=== PATIENT | male | born 1990 | race Caucasian/White ===

== ENCOUNTER 2017-09-29 09:12 | Emergency (ER) | payer OTHER ==
[2017-09-29 09:19] VITALS: RESP 18
[2017-09-29] MEDS ORDERED: SODIUM CHLORIDE 0.9% 1,000 ML IV STA ×2 (09:28)
[2017-09-29] MEDS ORDERED: KETOROLAC 30 MG/ML 1 ML VIAL IVP STA (09:28)
--- NOTE | 2017-09-29 09:34 | ED ---
Back Pain HPI - General Chief Complaint: Back Pain/Injury Stated Complaint: poss kidney stone Time Seen by Provider: 09/29/17 09:22 Source: patient, RN notes reviewed Limitations: no limitations - History of Present Illness Initial Comments: This a 27-year-old male with a history kidney stones he states he's been having intermittent episodes of left flank pain of last several weeks last night he had increased pain it was off-and-on during the evening and had pain is severe is 58/10 currently is 5/10 sharp in nature nonradiating. MD Complaint: back pain - Related Data Previous Rx's Medication Instructions Recorded HYDROcodone/APAP 5-325MG [[place] 5] 1 each PO Q4HR PRN #30 tab 02/09/15 Naproxen [Naprosyn] 500 mg PO Q12HR #60 tab 02/09/15 Tamsulosin HCl [Flomax] 0.4 mg PO DAILY #30 cap 02/09/15 Ibuprofen 800 mg PO Q6HR PRN #20 tablet 09/29/17 Allergies Allergy/AdvReac Type Severity Reaction Status Date / Time Cephalosporins Allergy Unknown Verified 09/29/17 09:19 Review of Systems ROS Statement: Those systems with pertinent positive or pertinent negative responses have been documented in the HPI. ROS Other: All systems not noted in ROS Statement are negative. Past Medical History Past Medical History: No Reported History History of Any Multi-Drug Resistant Organisms: None Reported Past Surgical History: Adenoidectomy, Ear Surgery, Tonsillectomy Past Psychological History: No Psychological Hx Reported Smoking Status: Current every day smoker Past Alcohol Use History: None Reported Past Drug Use History: None Reported General Exam - General Exam Comments Initial Comments: This is a well-developed well-nourished awake alert oriented 3 male Limitations: no limitations General appearance: alert, in no apparent distress Head exam: Present: atraumatic, normocephalic, normal inspection Eye exam: Present: normal appearance, PERRL, EOMI. Absent: scleral icterus, conjunctival injection, periorbital swelling ENT exam: Present: normal exam, mucous membranes moist Neck exam: Present: normal inspection. Absent: tenderness, meningismus, lymphadenopathy Respiratory exam: Present: normal lung sounds bilaterally. Absent: respiratory distress, wheezes, rales, rhonchi, stridor Cardiovascular Exam: Present: regular rate, normal rhythm, normal heart sounds. Absent: systolic murmur, diastolic murmur, rubs, gallop, clicks GI/Abdominal exam: Present: soft, normal bowel sounds. Absent: distended, tenderness, guarding, rebound, rigid Extremities exam: Present: normal inspection, full ROM, normal capillary refill. Absent: tenderness, pedal edema, joint swelling, calf tenderness Back exam: Present: normal inspection, tenderness (Mild left SI region pain to palpation no CVA tenderness). Absent: CVA tenderness (R), CVA tenderness (L), muscle spasm, paraspinal tenderness, vertebral tenderness, rash noted Neurological exam: Present: alert, oriented X3, CN II-XII intact Psychiatric exam: Present: normal affect, normal mood Skin exam: Present: warm, dry, intact, normal color. Absent: rash Course Vital Signs 09/29/17 09:16 Temperature 97.7 F Pulse Rate 97 Respiratory 18 Rate Blood Pressure 138/85 O2 Sat by Pulse 99 Oximetry Medical Decision Making - Medical Decision Making The patient is showing improved I did discuss the findings with him the presentation currently is more consistent with sacroiliitis as this is the point tenderness on exam. Urine was clean no CVA tenderness no flank or abdominal tenderness. I did discuss this with the patient though we can't totally rule out a kidney stone without CAT scan this is not indicated at this time. Patient will be discharged on anti-inflammatories is a follow-up with his doctor return when necessary he is well aware of other signs of kidney stones and was warned to follow-up. - Lab Data Result diagrams: 09/29/17 09:37 09/29/17 09:37 Lab Results 09/29/17 09/29/17 09/29/17 Range/Units 09:37 09:37 09:37 WBC 6.6 (3.8-10.6) k/uL RBC 5.62 (4.30-5.90) m/uL Hgb 17.1 (13.0-17.5) gm/dL Hct 48.9 (39.0-53.0) % MCV 87.0 (80.0-100.0) fL MCH 30.5 (25.0-35.0) pg MCHC 35.1 (31.0-37.0) g/dL RDW 12.4 (11.5-15.5) % Plt Count 231 (150-450) k/uL Neutrophils % 55 % Lymphocytes % 33 % Monocytes % 6 % Eosinophils % 5 % Basophils % 0 % Neutrophils # 3.6 (1.3-7.7) k/uL Lymphocytes # 2.1 (1.0-4.8) k/uL Monocytes # 0.4 (0-1.0) k/uL Eosinophils # 0.3 (0-0.7) k/uL Basophils # 0.0 (0-0.2) k/uL Sodium 139 (137-145) mmol/L Potassium 4.4 (3.5-5.1) mmol/L Chloride 105 (98-107) mmol/L Carbon Dioxide 22 (22-30) mmol/L Anion Gap 12 mmol/L BUN 8 L (9-20) mg/dL Creatinine 0.67 (0.66-1.25) mg/dL Est GFR (MDRD) Af Amer >60 (>60 ml/min/1.73 sqM) Est GFR (MDRD) Non-Af >60 (>60 ml/min/1.73 sqM) Glucose 89 (74-99) mg/dL Calcium 10.1 (8.4-10.2) mg/dL Total Bilirubin 1.3 (0.2-1.3) mg/dL AST 41 (17-59) U/L ALT 68 (21-72) U/L Alkaline Phosphatase 57 (38-126) U/L Total Protein 7.4 (6.3-8.2) g/dL Albumin 4.5 (3.5-5.0) g/dL Amylase <30 L (30-110) U/L Lipase 29 (23-300) U/L Urine Color Colorless Urine Appearance Clear (Clear) Urine pH 7.0 (5.0-8.0) Ur Specific [place] 1.001 (1.001-1.035) Urine Protein Negative (Negative) Urine Glucose (UA) Negative (Negative) Urine Ketones Negative (Negative) Urine Blood Negative (Negative) Urine Nitrite Negative (Negative) Urine Bilirubin Negative (Negative) Urine Urobilinogen <2.0 (<2.0) mg/dL Ur Leukocyte Esterase Negative (Negative) - Radiology Data Radiology results: report reviewed (I did review the imaging and reports no acute findings.), image reviewed Disposition Clinical Impression: Mechanical back pain, Sacroiliitis Disposition: HOME SELF-CARE Condition: Good Instructions: Sacroiliitis (ED) Prescriptions: Ibuprofen 800 mg PO Q6HR PRN #20 tablet PRN Reason: Pain Referrals: Rancho Musa MD [Primary Care Provider] - 1-2 days
[2017-09-29 09:49] LABS: Appearance,Urine Clear (Clear); Bilirubin,Urine Negative (Negative); Glucose,Urine (UA) Negative (Negative); Ketones,Urine Negative (Negative); Leukocyte Esterase,Urine Negative (Negative); Nitrite,Urine Negative (Negative); Protein,Urine Negative (Negative); Specific Gravity,Urine 1.001 (1.001-1.035); UA Billing (MACRO vs. MICRO) CHEM; Urobilinogen,Urine <2.0 mg/dL (<2.0)
[2017-09-29 09:56] LABS: Basophils % (A) 0 %; CH 31.9; CHCM 36.8; Eosinophils # (A) 0.3 k/uL (0-0.7); Eosinophils % (A) 5 %; HCT 48.9 % (39.0-53.0); HDW 2.87; HGB 17.1 gm/dL (13.0-17.5); Luc # (Auto) 0.13; Luc % (Auto) 2; Lymphocytes # (A) 2.1 k/uL (1.0-4.8); Lymphocytes % (A) 33 %; MCH 30.5 pg (25.0-35.0); MCHC 35.1 g/dL (31.0-37.0); Mean Platelet Volume 6.2; Monocytes # (A) 0.4 k/uL (0-1.0); Monocytes % (A) 6 %; Neutrophils # (A) 3.6 k/uL (1.3-7.7); Neutrophils % (A) 55 %; RBC 5.62 m/uL (4.30-5.90); RDW 12.4 % (11.5-15.5); WBC 6.6 k/uL (3.8-10.6); WBC (Perox) 6.27
[2017-09-29 09:59] LABS: ALT 68 U/L (21-72); AST 41 U/L (17-59); Alkaline Phosphatase 57 U/L (38-126); Amylase <30 U/L (30-110); Anion Gap 12 mmol/L; Blood Urea Nitrogen 8 mg/dL (9-20); Calcium 10.1 mg/dL (8.4-10.2); Carbon Dioxide 22 mmol/L (22-30); Chloride 105 mmol/L (98-107); Glucose 89 mg/dL (74-99); Non-African American GFR(MDRD) >60 (>60 ml/min/1.73 sqM); Potassium 4.4 mmol/L (3.5-5.1); Sodium 139 mmol/L (137-145); Total Bilirubin 1.3 mg/dL (0.2-1.3); Total Protein 7.4 g/dL (6.3-8.2)
--- NOTE | 2017-09-29 10:04 | XR ---
EXAMINATION TYPE: XR KUB , 2 VIEWS DATE OF EXAM ORDERED: 09/29/2017 HISTORY: abdominal pain. COMPARISON: None. FINDINGS: The lung bases are clear. Within the abdomen, the abdominal gas pattern is normal. There is no evidence of obstruction or free air. No unusual calcifications are seen. IMPRESSION: NO ACUTE INTRA-ABDOMINAL ABNORMALITY.
[2017-09-29 10:38] VITALS: BP 143/63; PULSE 72; TEMP 98.2
== END 2017-09-29 10:53 | disposition home or self-care (01) ==
LOC: EC 09:12
DX: M46.1 Sacroiliitis, not elsewhere classified (principal); F17.200 Nicotine dependence, unspecified, uncomplicated; Z87.442 Personal history of urinary calculi; Z88.1 Allergy status to other antibiotic agents
CPT/HCPCS: 36415; 80053; 82150; 83690; 85025; 81003; 74000; 99284; 96374; 96361; J1885

== ENCOUNTER 2021-03-20 12:33 | Emergency (ER) | payer OTHER ==
--- NOTE | 2021-03-20 13:22 | ED ---
General Adult HPI - General Chief complaint: Shortness of Breath Stated complaint: [place] Time Seen by Provider: 03/20/21 12:49 Source: patient, RN notes reviewed Mode of arrival: ambulatory Limitations: no limitations - History of Present Illness Initial comments: Patient is a pleasant 30-year-old male presenting to the emergency Department with complaints of fatigue and dyspnea. Patient received his second immunization 5 days ago for COVID-19. Patient states since that time he has been very fatigued. Patient has been sleepy. No significant achiness. Patient has had minimal cough. Patient is tolerating oral intake. Today's patient started with shortness of breath. No leg pain or leg swelling. No chest pain. No history of similar symptoms previously. - Related Data Home Medications Medication Instructions Recorded Confirmed Loratadine [Claritin] 10 mg PO DAILY PRN 03/20/21 03/20/21 Allergies Allergy/AdvReac Type Severity Reaction Status Date / Time Cephalosporins Allergy Unknown Verified 03/20/21 14:02 Childhood Review of Systems ROS Statement: Those systems with pertinent positive or pertinent negative responses have been documented in the HPI. ROS Other: All systems not noted in ROS Statement are negative. Constitutional: Denies: fever Eyes: Denies: eye pain ENT: Denies: ear pain Respiratory: Reports: as per HPI, cough, dyspnea Cardiovascular: Denies: chest pain Endocrine: Reports: fatigue Gastrointestinal: Denies: abdominal pain Genitourinary: Denies: dysuria Musculoskeletal: Denies: back pain Skin: Denies: rash Neurological: Denies: headache Past Medical History Past Medical History: Asthma History of Any Multi-Drug Resistant Organisms: None Reported Past Surgical History: Adenoidectomy, Ear Surgery, Tonsillectomy Past Psychological History: No Psychological Hx Reported Smoking Status: Former smoker Past Alcohol Use History: None Reported Past Drug Use History: None Reported General Exam Limitations: no limitations General appearance: alert, in no apparent distress Head exam: Present: atraumatic Eye exam: Present: normal appearance Neck exam: Present: normal inspection Respiratory exam: Present: rhonchi (Mild diffuse rhonchi) Cardiovascular Exam: Present: tachycardia, normal heart sounds Expanded Peripheral pulses: 2+: Radial (R), Radial (L), Posterior Tibialis (R), Posterior Tibialis (L) GI/Abdominal exam: Present: soft. Absent: tenderness Extremities exam: Present: normal inspection. Absent: pedal edema, calf tende rness Neurological exam: Present: alert Psychiatric exam: Present: normal affect, normal mood Skin exam: Present: normal color Course Vital Signs 03/20/21 12:33 Temperature 98.1 F Pulse Rate 115 H Respiratory 20 Rate Blood Pressure 149/101 O2 Sat by Pulse 97 Oximetry - Reevaluation(s) Reevaluation #1: 03/20/21 13:19 Patient is very worried about cost regarding testing and treatment emergency department. Patient is recommended to do full evaluation however is refusing. Patient does demonstrate medical decision making. Patient is made aware of concerns for multiple disease processes that could be life-threatening including pulmonary embolism, blood clots, heart attack and multiple other things. Despite this patient refuses any testing other than Covid 19 testing at this time. Medical Decision Making - Medical Decision Making Patient reevaluated and resting complain bed. Patient updated on negative COVID-19 result. Patient is again recommended further evaluation however still refuses. Patient is aware that he would be AGAINST MEDICAL ADVICE. Patient is agreeable to return if symptoms worsen. - Lab Data Lab Results 03/20/21 Range/Units 13:31 Coronavirus (PCR) Not Detected (Not Detectd) Disposition Clinical Impression: Dyspnea Disposition: Left Against Medical Advice Instructions (If sedation given, give patient instructions): Dyspnea (ED) Additional Instructions: Please do follow-up tomorrow with primary care physician. You are leaving AGAINST MEDICAL ADVICE. Please do return for any desire to have further testing, worsening symptoms, breathing problems, chest pain, fevers, any other concerns. Is patient prescribed a controlled substance at d/c from ED?: No Referrals: Rancho Musa MD [Primary Care Provider] - 1-2 days Time of Disposition: 14:32
[2021-03-20 14:48] VITALS: BP 126/65; PULSE 67; RESP 19; TEMP 98.3
== END 2021-03-20 14:47 | disposition left against medical advice (07) ==
LOC: EC 12:33
DX: R06.02 Shortness of breath (principal); J45.909 Unspecified asthma, uncomplicated; Z53.29 Procedure and treatment not carried out because of patient's decision for other reasons; Z87.891 Personal history of nicotine dependence; Z88.1 Allergy status to other antibiotic agents
CPT/HCPCS: 87635; 99284